=== PATIENT | male | born 1985 | race African-American/Black ===

== ENCOUNTER 2019-11-07 16:01 | Emergency (ER) | payer SELFPAY ==
[~2019-11-07] VITALS: Ht 182.8 cm; Wt 77.1 kg
--- NOTE | 2019-11-07 16:54 | ED Integumentary General ---
General Chief Complaint: Skin/Wound Problems Stated Complaint: SKIN IRRITATION Nursing Triage Note: for the past year has had issues with his skin, states he does not like to go to the hospital but the issues with his skin seems like its growing History of Present Illness Date Seen by Provider: Nov 07, 2019 Time Seen by Provider: 16:15 Initial Comments 33-year-old -[place] male presents for dry flaking and that is been present for approximately one year. He's been using Sindhu bring been trying lotions including Aveeno with no improvement. No chronic history of skin issues. No exposure to new products or chemicals. Timing/Duration: intermittent Location: generalized Possible Cause: no cause identified Associated Symptoms: change in skin texture Allergies and Home Medications Patient Home Medication List Home Medication List Reviewed: Yes Review of Systems Review of Systems Constitutional: no symptoms reported, see HPI Skin: see HPI, dryness All Other Systems Reviewed Negative Unless Noted: Yes Past Diiarvb-Ewwoiu-Ixbnab Hx Past Med/Social Hx: Reviewed Nursing Past Med/Soc Hx Patient Social History Alcohol Use: Denies Use Recreational Drug Use: No Smoking Status: Current Everyday Smoker Type Used: Cigarettes 2nd Hand Smoke Exposure: Yes Recent Foreign Travel: No Contact w/Someone Who Travel: No Recent Infectious Disease Expo: No Recent Hopitalizations: No Seasonal Allergies Seasonal Allergies: No Past Medical History Surgeries: No Respiratory: No Cardiac: No Neurological: No Genitourinary: No Gastrointestinal: No Musculoskeletal: No Endocrine: No HEENT: No Cancer: No Psychosocial: No Integumentary: Yes Psoriasis Blood Disorders: No Physical Exam Vital Signs Vital Signs - First Documented 11/07/19 11/07/19 16:05 17:02 Temp 36.9 Pulse 85 Resp 18 B/P (MAP) 131/72 (91) Pulse Ox 99 Capillary Refill : Less Than 3 Seconds General Appearance: WD/WN, no apparent distress HEENT: PERRL/EOMI, normal ENT inspection, TMs normal, pharynx normal Neck: non-tender, full range of motion, supple, normal inspection Cardiovascular: normal peripheral pulses, regular rate, rhythm Respiratory: chest non-tender, lungs clear, normal breath sounds Gastrointestinal: normal bowel sounds, non tender, soft Extremities: normal range of motion, non-tender, normal inspection Neurologic/Psychiatric: no motor/sensory deficits, alert, normal mood/affect, oriented x 3 Skin: normal color, warm/dry Skin Problem Location: generalized Skin Problem Character: scales, thickening, other (extreme dryness and flaking, to face, chest, abdomen, back and extremities.) Progress/Results/Core Measures Results/Orders Vital Signs/I&O 11/07/19 11/07/19 16:05 17:02 Temp 36.9 36.9 Pulse 85 80 Resp 18 B/P (MAP) 131/72 (91) 128/70 (91) Pulse Ox 99 Blood Pressure Mean: 91 Departure Impression Primary Impression: Psoriasis Disposition: 01 HOME, SELF-CARE Condition: Improved Departure-Patient Inst. Decision time for Depature: 16:45 Referrals: NO,LOCAL PHYSICIAN (PCP) Primary Care Physician MANSI BLACKBURN MD Patient Instructions: Psoriasis (DC) Add. Discharge Instructions: Clean your skin with Cetaphil and apply Cetaphil cream or Aquaphor to affected areas. Schedule appt Dr. Magallon. Return to the Emergency Dept. as needed, for urgent needs. All discharge instructions reviewed with patient and/or family. Voiced understanding. ANUEL STILL Nov 07, 2019 16:54
[2019-11-07 17:02] VITALS: BP 128/70
== END 2019-11-07 17:02 | disposition home or self-care (01) ==
LOC: ER 16:03
DX: L40.9 Psoriasis, unspecified (principal); F17.210 Nicotine dependence, cigarettes, uncomplicated
CPT/HCPCS: 99282